=== PATIENT | female | born 1985 | race Caucasian/White ===

== ENCOUNTER 2020-03-11 06:45 | Outpatient (CLI) | payer BC, SELFPAY ==
[2020-03-11 07:38] VITALS: BP 129/71; PULSE 86
[2020-03-11] MEDS: TERBUTALINE SULFATE 1 MG/ML VIAL 0.25 MG SUB-Q (07:38)
--- NOTE | 2020-03-11 07:55 | PM.OBPNVD ---
OB - PN: Subj Subjective Date/time seen: 03/11/20 07:55 Bedside u/s showed transverse back down Attempted to do external version but no movement of head after several attempts. Discussed with patient and stopped procedure. Plan to schedule primary csection. Couple to also discuss possible BTL. Plan NST now then DC OB - PN A/P Time Spent With Patient Time: Total time spent is greater than 50% in coordination of care (as documented) at patient's floor/unit and/or counseling patient:
[2020-03-11 08:01] VITALS: BP 134/73; PULSE 97
== END 2020-03-11 08:40 | disposition home or self-care (01) ==
LOC: ANHOBOP 06:54 → ANHOBPP 07:17
PROVIDERS: Visit Provider Obstetrics & Gynecology Gynecology
DX: O32.1XX0 Maternal care for breech presentation, not applicable or unspecified (principal); Z3A.00 Weeks of gestation of pregnancy not specified
CPT/HCPCS: 59412; 99199; J3105

== ENCOUNTER 2020-03-29 07:17 | Inpatient (IN) | payer BC, SELFPAY ==
[2020-03-29] VITALS (67 sets, daily range): BP systolic 90–145; BP diastolic 62–88; PULSE 75–107; RESP 13–20; TEMP 36.3–36.7; O2SAT 94–99; BMI 46.3
--- NOTE | 2020-03-29 07:17 | LDADM ---
This patient, Cheryle Lopez, was admitted to Labor/Delivery/Recovery 104 on 03/29/20 at 07:17. Plans for labor, pain management and were discussed with patient. Patient/family oriented to hospital policies and general routines including ID bracelet, bed and alarms, visiting hours, pain management, procedures, bathroom and other care routines, personal items, smoking policy, room service/diet and guest tray routines, security routines, and visiting hours. Patient/Family are encouraged to report perceived risks to care and to ask questions if they do not understand what they are told or what they should do. See OBIX for further documentation.
--- NOTE | 2020-03-29 07:57 | WPDANESEPP ---
Anes - Eval Pre Procedure Procedure: Operation Date: 03/29/20 09:00 Proposed Procedures p Primary Section - Carolann Long MD Date/Time: 03/29/20 07:57 Surgeon: bernard Pre Op Diagnosis: Induction of Labor Patient Data Age: 35 Gender: F Height: Weight: Last Vital Signs Pulse 101 H 03/29/20 07:47 BP 133/88 03/29/20 07:47 Allergies Allergy/AdvReac Type Severity Reaction Status Date / Time No Known Allergies Allergy Verified 03/11/20 08:31 Home Medications Medication Instructions Recorded Confirmed Type PNV cmb#95-ferrous fumarate-FA 1 tablet PO DAILY 03/11/20 03/11/20 History [] aspirin [Aspirin Low Dose] 81 mg PO DAILY 03/11/20 03/11/20 History ergocalciferol (vitamin D2) 50,000 unit PO WEEKLY 03/11/20 03/11/20 History Patient hx anesthesia problems: none Family hx anesthesia problems: none PMFSH Past Medical History Medical History (Updated 03/29/20 @ 07:58 by Mayte Lyons CRNA) Migraines Family History Family History (Updated 03/11/20 @ 08:36 by Patsy Tinoco RN) Other No known health problems Social History Social History Substance use: former Spiritual care concerns: No Exam Day of Procedure 03/29/20 07:57
[2020-03-29] MEDS: TERBUTALINE SULFATE 1 MG/ML VIAL 0.25 MG SUB-Q (09:12)
--- NOTE | 2020-03-29 09:27 | WPDOBADMIT ---
Obstetrics - Admit Note Admission Note: record reviewed. No pertinent additions to the history and/or any subsequent changes in the physical findings that are not consistent with the expected course of the were found. Additions to the history and/or subsequent changes in the physical findings follow. has been transverse for months and patient was set for csection today. On Sunday, infant vertex in office. On admit this am, infant was double footling breech. Discussed unstable lie with patient. External cephalic version was successful but infant not low enough to AROM. Will start pitocin and reevaluate for AROM. FHTs reactive.
[2020-03-29] MEDS: OXYTOCIN 30 UNITS/NS 500 ML 30 UNITS/500 ML BAG 125 UNITS IV CONT (09:32)
[2020-03-29] MEDS: LACTATED RINGERS 1,000 ML 125 ML IV CONT ×2 (09:33→10:45)
[2020-03-29 09:35] LABS: Basophils Percent Auto 0.2 % (0.2-1.2); Eosinophils Absolute Auto 0.1 K/mm3 (0-0.3); Eosinophils Percent Auto 0.6 % (0-4.4); Hematocrit 36.3 % (37.0-47.0); Hemoglobin 11.8 g/dL (12.0-15.0); Immature Granulocyte Absolute 0.08 K/mm3 (0.00-0.031); Immature Granulocyte Percent A 0.8 % (0-0.5); Lymphocytes Absolute Auto 1.77 K/mm3 (0.9-3.2); Lymphocytes Percent Auto 18.1 % (18.3-44.2); Mean Corpuscular HGB Conc 32.5 g/dl (32-36); Mean Corpuscular Hemoglobin 28.4 pg (26-34); Mean Corpuscular Volume 87.3 fl (80-100); Mean Platelet Volume 11.5 fl (7.4-10.4); Monocytes Absolute Auto 0.6 K/mm3 (0.1-0.6); Monocytes Percent Auto 6.6 % (2.6-8.5); Neutrophils Absolute Auto 7.2 K/mm3 (1.3-6.7); Neutrophils Percent Auto 73.7 % (45.5-73.1); Platelet Count Result 248 k/mm3 (150-375); Red Blood Count 4.16 M/mm3 (4.2-5.4); Red Cell Distribution Width 14.2 % (11.5-14.5); White Blood Count 9.8 K/mm3 (4.5-10.0)
--- NOTE | 2020-03-29 09:52 | WPDANESEPP ---
Anes - Eval Pre Procedure Procedure: labor epidural Date/Time: 03/29/20 09:52 Surgeon: bernard Pre Op Diagnosis: Induction of Labor Patient Data Age: 35 Gender: F Height: 1.63 m Weight: 122.5 kg Last Vital Signs Pulse 101 H 03/29/20 09:01 BP 122/64 03/29/20 09:01 Allergies Allergy/AdvReac Type Severity Reaction Status Date / Time No Known Allergies Allergy Verified 03/11/20 08:31 Home Medications Medication Instructions Recorded Confirmed Type PNV cmb#95-ferrous fumarate-FA 1 tablet PO DAILY 03/11/20 03/29/20 History [] aspirin [Aspirin Low Dose] 81 mg PO DAILY 03/11/20 03/29/20 History ergocalciferol (vitamin D2) 50,000 unit PO WEEKLY 03/11/20 03/29/20 History Laboratory Tests 03/29/20 03/29/20 09:26 09:26 WBC 9.8 K/mm3 K/mm3 (4.5-10.0) RBC 4.16 M/mm3 L M/mm3 (4.2-5.4) Hgb 11.8 g/dL L g/dL (12.0-15.0) Hct 36.3 % L % (37.0-47.0) MCV 87.3 fl fl (80-100) MCH 28.4 pg pg (26-34) MCHC 32.5 g/dl g/dl (32-36) RDW 14.2 % % (11.5-14.5) Plt Count 248 k/mm3 k/mm3 (150-375) MPV 11.5 fl H fl (7.4-10.4) Immature Gran % (Auto) 0.8 % H % (0-0.5) Neut % (Auto) 73.7 % H % (45.5-73.1) Lymph % (Auto) 18.1 % L % (18.3-44.2) [place] % (Auto) 6.6 % % (2.6-8.5) Eos % (Auto) 0.6 % % (0-4.4) Baso % (Auto) 0.2 % % (0.2-1.2) Lymph # (Auto) 1.77 K/mm3 K/mm3 (0.9-3.2) [place] # (Auto) 0.6 K/mm3 K/mm3 (0.1-0.6) Eos # (Auto) 0.1 K/mm3 K/mm3 (0-0.3) Baso # (Auto) 0.0 K/mm3 K/mm3 (0.0-0.1) Abs Immat Gran (auto) 0.08 K/mm3 H K/mm3 (0.00-0.031) Absolute Neuts (auto) 7.2 K/mm3 H K/mm3 (1.3-6.7) Absolute Nucleated RBC 0.0 K/mm3 K/mm3 (0.0-0.012) Nucleated RBC % 0.0 % % (0.0-0.2) RPR Pending Patient hx anesthesia problems: none Family hx anesthesia problems: none [facility] Past Medical History Medical History (Updated 03/29/20 @ 07:58 by Mayte Lyons CRNA) Migraines Family History Family History (Updated 03/11/20 @ 08:36 by Patsy Tinoco RN) Other No known health problems Social History Social History Smoking status: Former smoker Substance use: former Spiritual care concerns: No Exam Day of Procedure 03/29/20 09:52
--- NOTE | 2020-03-29 10:31 | PM.IMHP ---
H&P: HPI History of Present Illness Date/Time: 03/29/20 10:31 Chief complaint: Induction of Labor Narrative: Cheryle Lopez is a 35 year old female A3 at 39 wks EGA. has been transverse for months and patient was set for csection today. On Sunday, vertex in office. On admit this am, infant was double footling breech. Discussed unstable lie with patient. External cephalic version was successful but infant not low enough to AROM. Will start pitocin and reevaluate for AROM. FHTs reactive. Just rescanned patient and now transverse back up. Discussed again unstable lie and recommended proceed with csection. Reviewed that plan low transverse incision but may need to extend classically. Patient and spouse agree to proceed. labs: O+; Rubella nonimmune; RPR -; HIV -; HBSAg -; GBS -. [facility] Past Medical History Medical History (Updated 03/29/20 @ 10:38 by Carolann Long MD) Ectopic treated with MTX Elective x 1 Migraines (normal spontaneous vaginal delivery) x 2 Spontaneous x 2 Family History Family History (Updated 03/29/20 @ 10:35 by Carolann Long MD) Daughter ASD (atrial septal defect) VSD (ventricular septal defect) Other No known health problems Social History Social History Smoking status: Former smoker Substance use: former Spiritual care concerns: No Meds Home Medications and Allergies Home Medications Medication Instructions Recorded Confirmed Type PNV cmb#95-ferrous fumarate-FA 1 tablet PO DAILY 03/11/20 03/29/20 History [] aspirin [Aspirin Low Dose] 81 mg PO DAILY 03/11/20 03/29/20 History ergocalciferol (vitamin D2) 50,000 unit PO WEEKLY 03/11/20 03/29/20 History Allergies Allergy/AdvReac Type Severity Reaction Status Date / Time No Known Allergies Allergy Verified 03/11/20 08:31 Vital Signs Vital Signs - 24 hr 03/29/20 07:47 03/29/20 08:16 03/29/20 08:31 Pulse Rate 101 H 102 H 102 H Blood Pressure 133/88 136/73 145/82 H 03/29/20 08:46 03/29/20 09:01 Pulse Rate 102 H 101 H Blood Pressure 139/73 122/64 Exam Const: General: no acute distress Resp: Auscultation: clear to auscultation bilaterally GI: GI Palp: Yes Soft to palpation Other: u/s infant now transverse back up H&P: Results Labs Labs: Short CBC 03/29/20 Range/Units 09:26 WBC 9.8 (4.5-10.0) K/mm3 Hgb 11.8 L (12.0-15.0) g/dL Hct 36.3 L (37.0-47.0) % Plt Count 248 (150-375) k/mm3 Assessment and Plan Assessment and plan (1) Malpresentation of fetus: Code(s): O32.9XX0 - Maternal care for malpresentation of fetus, unspecified, not applicable or unspecified Status: Acute Assessment and Plan: unstable lie Plan to proceed with csection
--- NOTE | 2020-03-29 10:39 | WPDANESEFPP ---
Anes - Eval Final PreProcedure Day of Procedure 03/29/20 10:39 Patient weight: morbidly obese Heart: regular rate and rhythm Lungs: clear to auscultation Airway: Mallampati scale class II Neurological: alert and oriented Last oral intake: >/= 8 hours ASA classification: III Emergent: no Anesthetic plan: proceed Anesthesia type and monitoring: regional spinal and standard monitoring Informed Consent: The patient's anesthetic plan and its attendant risks and benefits were discussed with the patient/family/POA. Questions were solicited and answers provided to the satisfaction of the patient/family/POA.
[2020-03-29] MEDS: ceFAZolin 3 GM/D5W 100 ML 100 ML IVPB (10:44)
--- NOTE | 2020-03-29 11:36 | PM.OP ---
Procedure Note - Brief Procedure Note - Brief Date of procedure: 03/29/20 Pre-op diagnosis: Induction of Labor breech presentation external cephalic version transverse back up presentation unstable lie Post-op diagnosis: same Procedure performed: LTCS Anesthesia: spinal Surgeon: Carolann Long MD Estimated blood loss (mL): 305 Drains: Yes (skinner) Packing: No Pathology: none sent Complications: No immediate complications Condition: stable Disposition: PACU Findings: infant in transverse back up presentation with feet in left upper quadrant; thick lower uterine section; normal appearing uterus; female 7#11oz with 9/9 scores
--- NOTE | 2020-03-29 11:39 | PM.OBDSVD ---
DS: Admitting Diagnosis Admitting Diagnosis Admitting Diagnosis: MIL; IUP @ 39 wks; unstable lie DS: Discharge Diagnosis Discharge Diagnosis (1) Unstable lie: Code(s): O32.0XX0 - Maternal care for unstable lie, not applicable or unspecified Status: Acute Assessment and Plan: Admitted for MIL as vertex Sunday noted breech on admit external cephalic version to vertex 45 min later transverse back up (2) delivery delivered: Code(s): O82 - Encounter for delivery without indication Status: Acute (3) Successful external cephalic version: Status: Acute OB - DS: Summary OB Procedures : NST, Ultrasound and External version OB Procedures Intrapartum: low cervical, transverse OB Procedures: : None Peripartum Data Infant Delivery Method: Section Procedures: Procedures Operation Date: 03/29/20 09:00 <No data on this case meets the specified criteria> Operation Date: 03/29/20 10:30 <No data on this case meets the specified criteria> complications: none Status at Discharge Functional status at discharge: independent ambulation Overall status at discharge: patient is progressing back to baseline Time Spent with Patient Time attestation: Total time spent providing and/or coordinating discharge services: DS: Data Data Completed and Pending Labs on day of discharge: Labs from last 24 hours 03/29/20 03/29/20 03/29/20 09:26 09:26 09:26 WBC 9.8 RBC 4.16 L Hgb 11.8 L Hct 36.3 L MCV 87.3 MCH 28.4 MCHC 32.5 RDW 14.2 Plt Count 248 MPV 11.5 H Immature Gran % (Auto) 0.8 H Neut % (Auto) 73.7 H Lymph % (Auto) 18.1 L [place] % (Auto) 6.6 Eos % (Auto) 0.6 Baso % (Auto) 0.2 Lymph # (Auto) 1.77 [place] # (Auto) 0.6 Eos # (Auto) 0.1 Baso # (Auto) 0.0 Abs Immat Gran (auto) 0.08 H Absolute Neuts (auto) 7.2 H Absolute Nucleated RBC 0.0 Nucleated RBC % 0.0 RPR Pending Blood Type O Positive Antibody Screen Negative Discharge Plan Discharge Attending physician on discharge: Carolann Long Discharging Clinician: Carolann Long Anticipated Discharge Date/Time: 04/01/20 11:42 Patient Disposition: Home, Self-Care Activity: may shower, may drive after 2 weeks and pelvic rest Diet: regular Wound Care Instructions: keep dressing dry Discharge Instructions: keep bandage on until office follow up in 1 week Patient Instructions: Antibiotic Form Stand Alone Forms: General Discharge Information Follow-up/Referrals: Carolann Long MD [Physician] - 1 Week Discharge Medications: New hydrocodone-acetaminophen 5-325 mg Tablet 1 tab PO Q3H PRN (Reason: Moderate Pain (4-6)) Qty: 20 RF: 0 Continued ergocalciferol (vitamin D2) 1,250 mcg (50,000 unit) capsule 50,000 unit PO WEEKLY RF: 0 PNV cmb#95-ferrous fumarate-FA [] 28 mg iron- 800 mcg Tablet 1 tablet PO DAILY RF: 0 Discontinued aspirin [Aspirin Low Dose] 81 mg Tablet,Delayed Release (Dr/Ec) 81 mg PO DAILY RF: 0 Date of admission: 03/29/20 07:17 Primary Care Provider: ToyaSusan Admitting Provider: Carolann Long Attending physician on admission: Carolann Long Condition: Stable
[2020-03-29] MEDS: KETOROLAC 30 MG/ML VIAL (*BKC) IV PUSH ×2 (15:39→21:45)
--- NOTE | 2020-03-29 16:03 | PC.NURSE ---
1437-Patient transferred to post room #283 via stretcher. Support person present. Oriented to unit, room, information board, rooming in, admission packet and security measures. Patient verbalizes understanding.
[2020-03-29] MEDS: DEXTROSE 5%/0.45% SOD CHL 1,000 ML 125 ML IV CONT (19:52)
[2020-03-30 00:08] VITALS: BP 128/78; PULSE 90; RESP 18; TEMP 36.7; O2SAT 98
[2020-03-30 05:43] LABS: Basophils Percent Auto 0.4 % (0.2-1.2); Eosinophils Absolute Auto 0.1 K/mm3 (0-0.3); Eosinophils Percent Auto 0.8 % (0-4.4); Hematocrit 30.2 % (37.0-47.0); Hemoglobin 9.8 g/dL (12.0-15.0); Immature Granulocyte Absolute 0.06 K/mm3 (0.00-0.031); Immature Granulocyte Percent A 0.6 % (0-0.5); Lymphocytes Absolute Auto 2.11 K/mm3 (0.9-3.2); Lymphocytes Percent Auto 19.6 % (18.3-44.2); Mean Corpuscular HGB Conc 32.5 g/dl (32-36); Mean Corpuscular Hemoglobin 28.3 pg (26-34); Mean Corpuscular Volume 87.3 fl (80-100); Mean Platelet Volume 11.2 fl (7.4-10.4); Monocytes Absolute Auto 0.6 K/mm3 (0.1-0.6); Monocytes Percent Auto 5.3 % (2.6-8.5); Neutrophils Absolute Auto 7.9 K/mm3 (1.3-6.7); Neutrophils Percent Auto 73.3 % (45.5-73.1); Platelet Count Result 200 k/mm3 (150-375); Red Blood Count 3.46 M/mm3 (4.2-5.4); Red Cell Distribution Width 14.3 % (11.5-14.5); White Blood Count 10.8 K/mm3 (4.5-10.0)
[2020-03-30 06:05] VITALS: BP 116/77; PULSE 87; RESP 18; TEMP 36.6; O2SAT 99
--- NOTE | 2020-03-30 06:28 | OP_ITS ---
DATE OF PROCEDURE: 03/29/2020 PREOPERATIVE DIAGNOSIS: Intrauterine at 39 weeks, unstable lie. POSTOPERATIVE DIAGNOSIS: Intrauterine at 39 weeks, unstable lie. PROCEDURE: Primary low-transverse section. ANESTHESIA: Spinal. FINDINGS: Upon arrival to labor and delivery for medical induction of labor. The infant was noted to be breech presentation. On Sunday prior to induction, the was noted to be vertex by ultrasound and exam. The patient underwent external cephalic version into the cephalic position. Infant was vertex, but not engaged. The patient was sat in high Tucker's position and Pitocin was begun 45 minutes after the version. A second ultrasound was performed and the infant was noted to be in the transverse back up position. It was recommended at that time, due to the unstable lie that we proceed with primary . After discussion of risks and benefits, the patient and agreed. DESCRIPTION OF PROCEDURE: The patient was taken to the operating room, placed under spinal anesthesia. Prepped and draped in the usual sterile fashion. A Pfannenstiel skin incision was made with a scalpel and carried down to the underlying layer of fascia. Fascia was nicked in the midline and extended laterally using Balderrama scissors. Ochsner was used to tent the fascia, which was then dissected off using sharp and blunt dissection. The rectus muscles were in the midline. The peritoneum was entered bluntly. The incision was extended with blunt traction. The Shahid O retractor was placed. The bladder flap was noted to be very low and the lower uterine segment was not well developed. The low-transverse incision was made with a scalpel and carried down to the underlying amniotic cavity. The tissue was noted to be second consistently. The infant having been transverse with nothing in the pelvis in the past several months. There was no thinning of the lower uterine segment. The membranes were artificially ruptured. Clear fluid was noted. The infant was palpated and the feet are noted in the left upper quadrant. was noted to be transverse back up. The feet were grasped and pulled down into the incision. The was delivered from the breech presentation to the scapula. The humerus was splinted. The left arm was delivered. The infant was rotated. The humerus is splinted and the other arm was delivered. The was extended on the abdomen and the head was delivered. The cord was clamped and cut. The infant handed to the awaiting OB nurse. The placenta was removed using manual traction. The uterus is cleared of all clots and debris. The lower portion of the incision was grasped with a ring forceps. The uterine incision was closed using 0 Monocryl in a running locked fashion. The second suture of same was used to imbricate. Good hemostasis was noted. The gutters were irrigated. The incision was again inspected. The Shahid O retractor is removed. The incision is noted to be hemostatic. The fascia was closed using 0 Vicryl in a running fashion. Subcutaneous tissues were irrigated and made hemostatic using Bovie cautery. Skin was closed using 4-0 Vicryl in a subcuticular fashion. DermaFlex was placed over the incision. Mepilex bandages placed and will be left in place for 1 week. The patient was given antibiotics prior to incision. The sponge, instrument and needle counts were correct per the OR staff. Rossi I MT: Vadim
[2020-03-30 07:00] VITALS: BP 123/72; PULSE 87; RESP 18; TEMP 36.8; O2SAT 98
[2020-03-30] MEDS: IBUPROFEN 600 MG TABLET PO ×3 (07:17→18:53)
[2020-03-30] MEDS: DOCUSATE SODIUM 100 MG CAPSULE PO ×2 (07:19→17:35)
[2020-03-30] MEDS: POLYSACCHARIDE IRON COMPLEX 150 MG CAPSULE PO ×2 (07:20→17:35)
[2020-03-30] MEDS: MULTIVIT/MIN/PREN/FOL AC/IRON TABLET 1 TAB PO (07:20)
[2020-03-30] MEDS: LANOLIN (LANSINOH) 7.5 GM CREAM 1 APPLIC TOPICAL (07:24)
--- NOTE | 2020-03-30 07:53 | WPDANLDNPN2 ---
Anes-Prog Note L&D-Neuraxial Date/Time: 03/30/20 07:53 Neuraxial medications: intrathecal PF morphine Opiod-related complaints: none Patient feedback: Patient satisfied with post-operative pain management.
--- NOTE | 2020-03-30 07:53 | WPDANLDPN2 ---
Anes-Prog Note L&D Date/Time: 03/30/20 07:53 Comfortable throughout: section Neuraxial method: spinal Epidural/Spinal procedure site: clean & non-tender Neuro status: Neuro function grossly intact. Cardiovascular status: normal Respiratory status: normal Airway patency: baseline Mental status: baseline Post-Op hydration status: normal Vital Signs: Last Vital Signs Temp 36.6 C 03/30/20 06:05 Pulse 87 03/30/20 06:05 Resp 18 03/30/20 06:05 BP 116/77 03/30/20 06:05 Pulse Ox 99 03/30/20 06:05 I/O: Intake & Output 03/29/20 03/29/20 03/30/20 15:59 23:59 07:59 Intake Total 2200 952 600 Output Total 573 548 9520 Balance 1695 702 -750 Post-procedural complaints: none Patient feedback: Patient satisfied with anesthetic care.
--- NOTE | 2020-03-30 07:58 | P.PNOB_ITS ---
OB - PN: Subj Subjective Date/time seen: 03/30/20 07:58 Patient comments: no complaints and pain well controlled baby status: doing well OB - PN: Obj Data Labs CBC & Chem 7: 03/30/20 05:11 Labs: Laboratory Results - last 24 hr 03/29/20 03/29/20 03/30/20 09:26 09:26 05:11 WBC 9.8 10.8 H RBC 4.16 L 3.46 L Hgb 11.8 L 9.8 L Hct 36.3 L 30.2 L MCV 87.3 87.3 MCH 28.4 28.3 MCHC 32.5 32.5 RDW 14.2 14.3 Plt Count 248 200 MPV 11.5 H 11.2 H Immature Gran % (Auto) 0.8 H 0.6 H Neut % (Auto) 73.7 H 73.3 H Lymph % (Auto) 18.1 L 19.6 [place] % (Auto) 6.6 5.3 Eos % (Auto) 0.6 0.8 Baso % (Auto) 0.2 0.4 Lymph # (Auto) 1.77 2.11 [place] # (Auto) 0.6 0.6 Eos # (Auto) 0.1 0.1 Baso # (Auto) 0.0 0.0 Abs Immat Gran (auto) 0.08 H 0.06 H Absolute Neuts (auto) 7.2 H 7.9 H Absolute Nucleated RBC 0.0 0.0 Nucleated RBC % 0.0 0.0 Blood Type O Positive Antibody Screen Negative OB - PN A/P Plan day: 1 Plan: routine care Time Spent With Patient Time: Total time spent is greater than 50% in coordination of care (as documented) at patient's floor/unit and/or counseling patient: Exam GI: Other: Inc bandage intact : Bimanual exam- vagina & uterus: other (Uterus firm, nt @U)
[2020-03-30 08:16] LABS: Rapid Plasma Reagin Non-Reactive (NonReactive)
[2020-03-30 18:55] VITALS: BP 123/78; PULSE 90; RESP 16; TEMP 36.6
[2020-03-31] MEDS: IBUPROFEN 600 MG TABLET PO ×4 (00:55→19:05)
[2020-03-31] MEDS: MULTIVIT/MIN/PREN/FOL AC/IRON TABLET 1 TAB PO (06:45)
[2020-03-31] MEDS: POLYSACCHARIDE IRON COMPLEX 150 MG CAPSULE PO ×2 (06:45→17:20)
[2020-03-31] MEDS: DOCUSATE SODIUM 100 MG CAPSULE PO ×2 (06:45→17:20)
[2020-03-31 07:20] VITALS: BP 109/67; PULSE 88; RESP 18; TEMP 36.3; O2SAT 97
--- NOTE | 2020-03-31 08:02 | PM.OBPNVD ---
OB - PN: Subj Subjective Date/time seen: 03/31/20 08:02 Doing well pain controlled with prn meds baby under bili lights OB - PN: Obj Data Labs CBC & Chem 7: 03/30/20 05:11 Labs: Laboratory Results - last 24 hr 03/29/20 09:26 RPR Non-reactive OB - PN A/P Assessment and Plan (1) delivery delivered: Code(s): O82 - Encounter for delivery without indication Status: Acute Assessment and Plan: continue with postop care. Time Spent With Patient Time: Total time spent is greater than 50% in coordination of care (as documented) at patient's floor/unit and/or counseling patient: Exam GI: Other: incision with banage dry
[2020-03-31] MEDS: SIMETHICONE 80 MG TAB.CHEW PO (13:24)
--- NOTE | 2020-03-31 14:15 | PC.NURSE ---
Consult with pt., mother states she has mostly bottle fed due to under bili lights. Mother states she was breast and bottle with other 2 children and will do the same this this child. Mother states infant takes several attempts before latching. Assured mother this is normal for the first few days and should improve. Offered assist with next feeding. Mother states she is comfortable with latching and pumping and does not require assist, she will call out if needed. Reviewed infant feeding cues, frequencies, duration of feedings, feeding elimination flow sheet, and signs of adequate intake. Demonstrated stimulation techniques to wake infant for feeding. Nipple care reviewed. Instructed mother to call out for RN assistance if she is unable to latch for feeding or she has discomfort with nursing. Instructed feeding should be initiated three hours from start of last feeding or if feeding cues are noted before. Mother voiced understanding of information shared.
[2020-03-31 19:05] VITALS: BP 136/78; PULSE 87; RESP 16; TEMP 36.4
[2020-04-01] MEDS: IBUPROFEN 600 MG TABLET PO ×2 (01:13→07:09)
--- NOTE | 2020-04-01 07:02 | PM.OBPNVD ---
OB - PN: Subj Subjective Date/time seen: 04/01/20 07:02 Patient comments: no complaints and pain well controlled baby status: doing well OB - PN: Obj Data Labs CBC & Chem 7: 03/30/20 05:11 OB - PN A/P Plan day: 3 Plan: routine care, discharge home and other (follow up 1 wk) Comments: unsure control plans Time Spent With Patient Time: Total time spent is greater than 50% in coordination of care (as documented) at patient's floor/unit and/or counseling patient: Exam GI: Other: bandage intact : Bimanual exam- vagina & uterus: other (Uterus firm, nt @U)
[2020-04-01] MEDS: POLYSACCHARIDE IRON COMPLEX 150 MG CAPSULE PO (07:08)
[2020-04-01] MEDS: SIMETHICONE 80 MG TAB.CHEW PO (07:09)
[2020-04-01] MEDS: MULTIVIT/MIN/PREN/FOL AC/IRON TABLET 1 TAB PO (07:09)
[2020-04-01] MEDS: DOCUSATE SODIUM 100 MG CAPSULE PO (07:11)
[2020-04-01 07:19] VITALS: BP 150/86; BP 152/84; PULSE 69; RESP 18; TEMP 36.6; O2SAT 100
--- NOTE | 2020-04-01 09:30 | PC.NURSE ---
Mother is able to independently latch infant with appropriate positioning/alignment. She denies any nipple discomfort, is feeding as required and waking to feed if needed. Mother chooses how she will feed each feeding. Mother will breastfeed at times, then supplement or will choose to bottle feed. is able to latch and nurse effectively. Infant is currently meeting outcomes for weight, output, jaundice and feeding frequencies. Mother states she feels confident to continue effective at home. Reviewed transition to breast milk, signs of adequate intake, and engorgement/relief. Instructed to call ICP if intake/output less than required. Reviewed regular medications mother is taking. Information provided per [facility]. Reviewed community resources on the [facility] website and in the Mom/Baby guide. Information on outpatient services provided. Mother has no further questions at this time.
--- NOTE | 2020-04-01 09:58 | PC.NURSE ---
Patient was given the opportunity to view the discharge video Mother & Baby Care, The First Two Weeks and to ask questions. Patient declined viewing the video and has been given the mother/baby guide for home reference.
--- NOTE | 2020-04-01 09:59 | PC.NURSE ---
Self care and infant care discharge instructions given including follow up visit date and time. Mother verbalized understanding. No questions or concerns verbalized. Very pleasant and cooperative. FOB at side.
[2020-04-02 11:40] VITALS: BP 147/82; PULSE 85; RESP 20; O2SAT 97
== END 2020-04-01 12:35 | disposition home or self-care (01) | DRG 788 ==
LOC: ANHLDR 11:43 → ANHOB2 15:14
PROVIDERS: Admitting Provider Obstetrics & Gynecology Gynecology; PCP Family Medicine; Visit Provider Obstetrics & Gynecology Gynecology
PROC: 10D00Z1 Extraction of Products of Conception, Low, Open Approach (ICD-10-PCS; CPT 59514; principal; 2020-03-29 10:30)
DX: O32.0XX0 Maternal care for unstable lie, not applicable or unspecified (principal); Z37.0 Single live birth; Z3A.39 39 weeks gestation of pregnancy; O99.214 Obesity complicating childbirth; E66.01 Morbid (severe) obesity due to excess calories; O32.1XX0 Maternal care for breech presentation, not applicable or unspecified
CPT/HCPCS: 36415; 85025; 86592; 86850; 86900; 86901; A9270; J0131; J0690; J1885; J2274; J2370; J2405; J2590; J3105; J7120